=== PATIENT | female | born 1955 | race Caucasian/White ===

== ENCOUNTER 2016-10-26 09:36 | Outpatient (RCR) | payer OTHER ==
[~2016-10-26 09:36] MED LIST: ALEVE 220MG220 MG PO; ASPIR-LOW81 MG PO; ASPIRIN E.C. 8181 MG PO; CALCIUM1 CAP PO; CARDI-OMEGA1000 MG PO; COLACE 100100 MG/CAP PO; COUMADIN 2MG2 MG/TAB PO; FOLIC ACID 40400 MCG PO; IRON325 M1 PO; MULTIPLE VITAMI1 CAP PO; NORCO 325 MG-7.1 TAB PO; ROXICODONE 55 MG/TAB PO; VITAMIN C500 MG PO; [UNRECOGNIZED DRUG - OTHER]
== END 2016-10-31 | disposition home or self-care (01) ==
LOC: WSOH
DX: S50.01XD Contusion of right elbow, subsequent encounter (principal); S20.211D Contusion of right front wall of thorax, subsequent encounter; S70.01XD Contusion of right hip, subsequent encounter; W01.0XXD Fall on same level from slipping, tripping and stumbling without subsequent striking against object, subsequent encounter
CPT/HCPCS: G0283-GP

== ENCOUNTER 2017-01-29 13:35 | Outpatient (RCR) | payer OTHER | END 2017-02-05 | LOC: WSOH | DX: S50.01XD Contusion of right elbow, subsequent encounter (principal); S20.211D Contusion of right front wall of thorax, subsequent encounter; S70.01XD Contusion of right hip, subsequent encounter; W01.0XXD Fall on same level from slipping, tripping and stumbling without subsequent striking against object, subsequent encounter; Y99.0 Civilian activity done for income or pay ==

== ENCOUNTER 2017-02-19 12:18 | Day surgery (SDC) | payer BC ==
[~2017-02-19] VITALS: Ht 157.5 cm; Wt 74.6 kg
[2017-02-19 13:00] VITALS: BP 126/83; PULSE 81; TEMP 98.8
[2017-02-19] MEDS ORDERED: TYLENOL 500MG500 MG PO (13:14)
[2017-02-19] MEDS ORDERED: ASPIRIN 81M81 MG/TA2 PO (13:14)
[2017-02-19] MEDS ORDERED: CARAFATE 1GM1 G PO (13:56)
[2017-02-19 14:35] VITALS: BP 113/71; PULSE 94; TEMP 98.5
[2017-02-19 14:50] VITALS: BP 110/67; PULSE 74
[2017-02-19 15:05] VITALS: BP 103/49; PULSE 84
[2017-02-19 15:20] VITALS: BP 106/61; PULSE 79
== END 2017-02-19 15:35 | disposition home or self-care (01) ==
LOC: SDCO 12:18
DX: Z12.11 Encounter for screening for malignant neoplasm of colon (principal); K64.0 First degree hemorrhoids; K57.30 Diverticulosis of large intestine without perforation or abscess without bleeding; Z87.891 Personal history of nicotine dependence; I83.91 Asymptomatic varicose veins of right lower extremity; B35.1 Tinea unguium; E66.9 Obesity, unspecified; E78.5 Hyperlipidemia, unspecified; Z96.651 Presence of right artificial knee joint
CPT/HCPCS: OP; J2250; J2405; J3010; J7030

== ENCOUNTER → 2017-08-01 | Outpatient (CLI) | payer BC ==
[~2017-08-01] MED LIST changes: +ASPIRIN 81M81 MG/TA2 PO; +CARAFATE 1GM1 G PO; +TYLENOL 500MG500 MG PO
== END ==
LOC: MC.RAD 07-03 13:20
DX: Z12.31 Encounter for screening mammogram for malignant neoplasm of breast (principal)

== ENCOUNTER → 2018-09-15 | Outpatient (CLI) | payer BC | LOC: MC.RAD 13:29 | DX: Z12.31 Encounter for screening mammogram for malignant neoplasm of breast (principal) ==

== ENCOUNTER → 2019-10-05 | Outpatient (CLI) | payer BC | LOC: MC.RAD 14:06 | DX: Z12.31 Encounter for screening mammogram for malignant neoplasm of breast (principal) ==

== ENCOUNTER → 2020-10-07 | Outpatient (CLI) | payer BC | LOC: MC.RAD 14:02 | DX: Z12.31 Encounter for screening mammogram for malignant neoplasm of breast (principal) ==

== ENCOUNTER → 2021-01-19 | Outpatient (CLI) | payer BC | LOC: COL.RAD 01-11 10:30 | DX: E21.3 Hyperparathyroidism, unspecified (principal) | CPT/HCPCS: A9500 ==

== ENCOUNTER → 2021-11-15 | Outpatient (CLI) | payer BC | LOC: MC.RAD 14:41 | DX: Z12.31 Encounter for screening mammogram for malignant neoplasm of breast (principal) ==

== ENCOUNTER → 2022-11-07 | Outpatient (CLI) | payer BC | LOC: COL.RAD 10-29 10:30 | DX: E07.89 Other specified disorders of thyroid (principal); E21.3 Hyperparathyroidism, unspecified | CPT/HCPCS: A9500 ==

== ENCOUNTER → 2024-02-24 | Outpatient (CLI) | payer BC ==
[~2024-02-24] MED LIST changes: +NORCO 325 MG-51 TAB PO
== END ==
LOC: MC.RAD 09:38
DX: Z12.31 Encounter for screening mammogram for malignant neoplasm of breast (principal)